=== PATIENT | male | born 1955 | race Caucasian/White ===

== ENCOUNTER 2024-12-10 20:07 | Inpatient (IN) | payer OTHER ==
[~2024-12-10] VITALS: Ht 172.7 cm; Wt 76.9 kg
[2024-12-10] MEDS: IV NS 0.9% 1,000 ML BAG IV ONE (22:09)
[2024-12-10 22:25] LABS: PLATELET COUNT (AUTO) 202 K/uL (150-450); RED BLOOD CELL COUNT(AUTO) 5.48 MIL/uL (4.5-6.0); RED CELL DISTRIBUTION WIDTH 13.8 % (11.5-15.0); WHITE BLOOD COUNT (AUTO) 8.3 K/uL (4.3-11.0)
[2024-12-10 22:36] LABS: CALCIUM, SERUM 9.2 mg/dL (8.5-10.1); CREATININE 1.2 mg/dL (0.6-1.3); SODIUM SERUM 136 mmol/L (136-145); UREA NITROGEN, BLOOD 31 mg/dL (7-18)
[2024-12-10 22:43] LABS: LACTIC ACID 2.4 mmol/L (0.4-2.0)
[2024-12-10 22:53] LABS: CREATINE KINASE, TOTAL 206 U/L (39-308)
[2024-12-10 22:58] LABS: APPEARANCE,URINE CLEAR (CLEAR); BLOOD, URINE NEGATIVE Ery/uL (NEGATIVE); LEUKOCYTE ESTERASE ,URINE NEGATIVE (NEGATIVE); NITRITE, URINE POSITIVE (NEGATIVE); UGLUCOSE 1+ mg/dL (NEGATIVE)
[2024-12-10] MEDS ORDERED: hydrALAZINE HCL IV 20 MG VIAL ONE (23:03)
[2024-12-10] MEDS: hydrALAZINE HCL IV 20 MG VIAL IV ONE (23:07)
[2024-12-10 23:16] LABS: ADD URINE CULTURE YES
[2024-12-10 23:17] LABS: SQUAMOUS EPITHELIAL CELL,UR 0-2 /HPF (None Seen)
[2024-12-10 23:20] LABS: ALCOHOL, BLOOD < 3 mg/dL (0-10); ASPARTATE AMINOTRANSFERASE 164 U/L (15-37); TOTAL PROTEIN, SERUM 7.4 g/dL (6.4-8.2)
[2024-12-10] MEDS: CEFTRIAXONE 1GM BAG (ER ONLY) 1 GM/50 ML PIGGYBACK IV ONE (23:20)
[2024-12-11] MEDS ORDERED: ACETAMINOPHEN 325 MG TABLET PO PRN (02:00)
[2024-12-11] MEDS ORDERED: Z GUARD REMEDY 4 OZ OINT TP PRN (02:00)
[2024-12-11] MEDS ORDERED: LORAZEPAM 0.5 MG TABLET PO PRN (02:00)
[2024-12-11] MEDS ORDERED: ONDANSETRON HCL/PF 4 MG/2 ML VIAL IVP PRN (02:00)
[2024-12-11] MEDS ORDERED: MAGNESIUM HYDROXIDE 30 ML UDC PO PRN (02:00)
[2024-12-11 02:30] VITALS: BP 183/103; TEMP 98.5; O2SAT 98
[2024-12-11] MEDS: TAMSULOSIN 0.4 MG CAP.SR.24H PO SCH (02:49)
[2024-12-11] MEDS: CLONIDINE HCL 0.1 MG TABLET PO ONE (02:49)
[2024-12-11] MEDS: ENOXAPARIN SODIUM 40 MG/0.4 ML DISP.SYRIN SQ SCH (02:50)
[2024-12-11] MEDS: IV NS 0.9% 1,000 ML IV PRN (03:20)
[2024-12-11 04:00] VITALS: BP 126/96; TEMP 98; O2SAT 100
[2024-12-11 06:04] LABS: PLATELET COUNT (AUTO) 158 K/uL (150-450); RED BLOOD CELL COUNT(AUTO) 4.87 MIL/uL (4.5-6.0); RED CELL DISTRIBUTION WIDTH 13.6 % (11.5-15.0); WHITE BLOOD COUNT (AUTO) 6.1 K/uL (4.3-11.0)
[2024-12-11 06:09] LABS: CALCIUM, SERUM 8.9 mg/dL (8.5-10.1); CREATININE 1.0 mg/dL (0.6-1.3); SODIUM SERUM 141.0 mmol/L (136-145); UREA NITROGEN, BLOOD 32.0 mg/dL (7-18)
[2024-12-11 06:15] LABS: LDL 112.0 mg/dL (0-99)
[2024-12-11] MEDS: AMLODIPINE BESYLATE 5 MG TABLET PO SCH (08:30)
[2024-12-11] MEDS: FOLIC ACID 1 MG TABLET PO SCH (08:30)
[2024-12-11] MEDS: PANTOPRAZOLE 40 MG TABLET.DR PO SCH (08:30)
[2024-12-11] MEDS: ASPIRIN EC 81 MG TABLET.DR PO SCH (08:30)
[2024-12-11] MEDS: THIAMINE HCL 100 MG TABLET PO SCH (08:31)
[2024-12-11] MEDS: CHLORDIAZEPOXIDE HCL 5 MG CAPSULE PO SCH (08:42)
[2024-12-11] MEDS ORDERED: CHLORDIAZEPOXIDE HCL 10 MG CAPSULE PO SCH (09:00)
[2024-12-11 12:00] VITALS: BP 142/91; TEMP 98.1; O2SAT 97
[2024-12-11 20:00] VITALS: BP 177/107; TEMP 98.2; O2SAT 97
[2024-12-11] MEDS: ATORVASTATIN 40 MG TABLET PO SCH (21:39)
[2024-12-11] MEDS: CEFTRIAXONE 1 G in IV D5W 50 ML IV SCH (21:39)
[2024-12-12 04:00] VITALS: BP 108/70; TEMP 97.6; O2SAT 96
[2024-12-12 07:03] LABS: PLATELET COUNT (AUTO) 125 K/uL (150-450); RED BLOOD CELL COUNT(AUTO) 4.53 MIL/uL (4.5-6.0); RED CELL DISTRIBUTION WIDTH 13.8 % (11.5-15.0); WHITE BLOOD COUNT (AUTO) 4.6 K/uL (4.3-11.0)
[2024-12-12 07:09] LABS: CALCIUM, SERUM 8.3 mg/dL (8.5-10.1); CREATININE 0.8 mg/dL (0.6-1.3); PHOSPHORUS 3.6 mg/dL (2.5-4.9); SODIUM SERUM 141.0 mmol/L (136-145); UREA NITROGEN, BLOOD 23.0 mg/dL (7-18)
[2024-12-12 08:00] VITALS: BP 191/110; TEMP 97.6; O2SAT 96
[2024-12-12] MEDS: POTASSIUM CHLORIDE 20 MEQ TAB.PRT.SR PO ONE (09:04)
[2024-12-12 12:53] VITALS: BP 189/100; TEMP 97.6; O2SAT 96
[2024-12-12] MEDS: LOSARTAN POTASSIUM 50 MG TABLET PO SCH (13:24)
[2024-12-12] MEDS: CLONIDINE HCL 0.1 MG TABLET PO ONE (13:24)
[2024-12-12 14:19] VITALS: BP 163/102
[2024-12-12 16:00] VITALS: BP 150/102; TEMP 98; O2SAT 96
[2024-12-12] MEDS ORDERED: ATORVASTATIN 10 MG TABLET PO SCH (22:00)
[2024-12-13] MEDS ORDERED: ASPIRIN 81 MG TAB.CHEW PO SCH (09:00)
== END 2024-12-12 21:17 | DRG 433 ==
LOC: ER 20:17 → MEDSG1 12-11 01:49
PROVIDERS: ADMIT Nurse Practitioner Family; ATTEND Internal Medicine
DX: K70.10 Alcoholic hepatitis without ascites (principal); E87.20 Acidosis, unspecified; N39.0 Urinary tract infection, site not specified; E86.0 Dehydration; R62.7 Adult failure to thrive; Z86.73 Personal history of transient ischemic attack (TIA), and cerebral infarction without residual deficits; Z87.891 Personal history of nicotine dependence; F10.10 Alcohol abuse, uncomplicated; Y90.0 Blood alcohol level of less than 20 mg/100 ml; Z68.25 Body mass index [BMI] 25.0-25.9, adult; Z91.81 History of falling; R53.1 Weakness; I10 Essential (primary) hypertension; N40.1 Benign prostatic hyperplasia with lower urinary tract symptoms; R33.9 Retention of urine, unspecified
CPT/HCPCS: 36415; 70450-TC; 71045-TC; 76700-TC; 80048-TC; 80061-TC; 80076-TC; 81001; 82550-TC; 83605-TC; 83735-TC; 84100-TC; 84484-TC; 85025-TC; 87040-TC; 87086-TC; 97110-TC; 97116-TC; 97530-TC; 97535-TC; A4223; G0378; G0480; J0360; J0696; J1650; J7030; J7060